=== PATIENT | male | born 1990 | race Caucasian/White ===

== ENCOUNTER 2023-11-20 17:02 | Emergency (ER) | payer MEDICAID, SELFPAY ==
[2023-11-20 17:19] VITALS: BP 145/71; PULSE 67; RESP 16; TEMP 36.6; O2SAT 98
--- NOTE | 2023-11-20 17:45 | ED.URI ---
HPI - URI/Sore Throat General Chief Complaint: Upper Respiratory Infection Stated Complaint: Abdominal Pain/Diarrhea Source: patient and RN notes reviewed Mode of arrival: ambulatory Limitations: no limitations History of Present Illness HPI Narrative: 33-year-old male presented for complaint of sinus pressure, nasal drainage, fever and cough. Onset yesterday. Endorses temperature in the night was 104.5, though he had multiple blankets on. Endorses sleeping most of yesterday. He has taken ibuprofen. Patient also reports intermittent episodes of diarrhea for about 3 weeks. This is associated with abdominal cramping. Denies hematochezia, melena, vomiting or lethargy. Taking Pepto-Bismol. MD elicited complaint: cough Related Data Allergies Allergy/AdvReac Type Severity Reaction Status Date / Time No Known Allergies Allergy Unverified 05/14/17 13:57 Review of Systems Review of Systems: CONSTITUTIONAL: Endorses malaise, chills, sweats, fever EYES: Denies visual changes, redness, or discharge ENT: Reports rhinorrhea, congestion, otalgia, denies sore throat CARDIOVASCULAR: Denies chest pain, palpitations, edema RESPIRATORY: Reports cough, post nasal drainage. Denies dyspnea GASTROINTESTINAL: Denies abdominal pain, nausea, vomiting, diarrhea SKIN: Denies rash or itching MUSCULOSKELETAL: Endorses myalgia Exam Narrative: GENERAL: well-appearing EYES: PERRLA, conjunctivae clear ENT: Mucous membranes moist. TMs pearly sierra with dull light reflex bilaterally; no tragal tenderness. Oropharynx mildly erythematous without lesions or exudate, no drooling, no hoarseness, no trismus, uvula midline. No tripod positioning, muffled voice, soft palate or pharyngeal wall bulging NECK: Supple. No lymphadenopathy CHEST: Clear to auscultation, breath sounds equal. No wheezing, rhonchi, rales, or stridor. No respiratory distress, speaks in full sentences. HEART: Regular rate and rhythm. No murmur heard. SKIN: Warm, dry, no rash. NEURO: Alert and oriented x3. PSYCH: Normal mood and affect Course Course Emergency Course: Patient is aware of diagnosis, understands and agrees to treatment plan. Anticipatory guidance given. Patient agrees to follow-up as directed and is aware of reasons to seek care at the emergency department. Portions of this record may have been created with voice recognition software Level of Care: Express Care Visit Vital Signs Vital signs: Vital Signs Temperature 97.8 F 11/20/23 17:19 Pulse Rate 67 11/20/23 17:19 Respiratory Rate 16 11/20/23 17:19 Blood Pressure 145/71 H 11/20/23 17:19 Pulse Oximetry 98 11/20/23 17:19 Oxygen Delivery Room Air 11/20/23 17:19 Temperature 97.8 F 11/20/23 17:19 Pulse Rate 67 11/20/23 17:19 Respiratory Rate 16 11/20/23 17:19 Blood Pressure 145/71 H 11/20/23 17:19 Pulse Oximetry 98 11/20/23 17:19 Oxygen Delivery Room Air 11/20/23 17:19 reviewed MDM - URI/Sore Throat MDM Narrative Medical decision making narrative: negative flu and COVID results reviewed with patient. Discussed physical exam findings. Advised supportive measures and signs/symptoms to go to the ER. Pt is appropriate for outpt treatment and f/u regarding intermittent GI complaints. Differential Diagnosis Differential diagnosis: Likely upper respiratory infection, sinusitis and viral infection Discharge Plan Discharge Clinical Impression: Viral infection Patient Disposition: Home, Self-Care Condition: Stable Instructions: Antibiotic Form, Upper Respiratory Infection (ED) Additional Instructions: Your rapid flu and covid test were negative today. It may be too early to detect the virus, therefore we recommend retesting at home in 1-2 days Continue to follow general precautions: frequent handwashing, wear a mask, isolate/social distance, and avoid crowds if you have a fever. You must be fever free for 24 hours without the use of fever reducing me
[2023-11-20 17:57] LABS: EDINFLUASCREEN Negative (Negative); EDINFLUBSCREEN Negative (Negative)
== END 2023-11-20 18:01 | disposition home or self-care (01) ==
PROVIDERS: Emergency Provider Nurse Practitioner Family; PCP Internal Medicine
DX: B34.9 Viral infection, unspecified (principal); Z20.822 Contact with and (suspected) exposure to COVID-19
CPT/HCPCS: 87635; 87804; 99203; G0463

== ENCOUNTER 2024-10-12 14:49 | Emergency (ER) | payer OTHER, SELFPAY ==
--- OUTSIDE RECORDS SUMMARY | 2024-10-12 14:53 | XMS_ITS | Patient Health Record ---
Author Organization [facility] Address [address] [place] [address] Care Team Providers Care Embedded Firmware Engineer Name Role Phone Migration, Provider Unavailable Unavailable Reason For Referral No Information Encounters Encounter Location Date Provider Diagnosis [facility] [address] [place], [place] [id number] 06/01/2024 Prov ider Migration [facility] [address] [place], [place] [id number] 06/02/2024 Prov ider Migration Plan Of Treatment No Information
--- OUTSIDE RECORDS SUMMARY | 2024-10-12 14:53 | XMS_ITS | Encounter Summary ---
Author Organization [facility] Address [address] [place] [address] Care Team Providers Care Scallop Shucker Name Role Phone Cindi Leggett MD Primary Care Provider [phone] Encounter Details Date Type Department Care Team (Late st Contact Info) Description 11/20/2023 [facility] [address] [address] [place], [place] [id number] Cindi Leggett MD [facility] [address] [id number] Work note Social History Tobacco Use Types Packs/Day Years Used Date Smoking Tobacco: Never Smokeless Tobacco: Never Comments:Counseled by Dr. Bernadine arriaza. PHQ-2 Answer Date Recorded Patient Health Questionnaire-2 Score 2 09/15/2023 Sex and Gender Information Value Date Recorded Sex Assigned at Male 06/19/2024 4:45 PM CDT Legal Sex Male 1:53 PM CDT Gender Identity Male 06/19/2024 4:45 PM CDT Sexual Orientation Straight 06/19/2024 4: 45 PM CDT documented as of this encounter Plan of Treatment Upcoming Encounters Date Type Department Care Team (Late st Contact Info) Description 10/22/2024 8:20 AM CDT [facility] - [address] [place], [place] [phone] Cindi Leggett MD [address] [phone] documented as of this encounter Visit Diagnoses Not on filedocumented in this encounter Additional Health Concerns Assessment Noted Time PHQ-9 Depression Total Score: 10 024 1:13 PM CDT documented as of this encounter Care Teams Scallop Shucker Relationship Specialty Start Date End Date Cindi Leggett MD [address] [address] PCP - General INTERNAL MEDICINE 11/28/22 documented as of this encounter
--- OUTSIDE RECORDS SUMMARY | 2024-10-12 14:53 | XMS_ITS | Encounter Summary ---
Author Organization [facility] Address [address] [place] [address] Care Team Providers Care Medical Front Desk Specialist Name Role Phone Cindi Leggett MD Primary Care Provider [phone] Reason for Visit * Reason Onset Date Comments Appointment Request 09/04/2023 Encounter Details Date Type Department Care Team (Latest Contact Info) Description 09/04/2023 Loudeye Message Enc [facility] - [address] [address] [address] [place] [address] Cindi Leggett MD [address] [place] [address] [address] [place] [address] Antidepressant and anti anxiety medicine Social History Tobacco Use Types Packs/Day Years Used Date Smoking Tobacco: Never Smokeless Tobacco: Never Comments:Counseled by Dr. Bernadine arriaza. PHQ-2 Answer Date Recorded Patient Health Questionnaire-2 Score 4 12/20/2022 Sex and Gender Information Value Date Recorded Sex Assigned at Male 06/19/2024 4:45 PM CDT Legal Sex Male 1:53 PM CDT Gender Identity Male 06/19/2024 4:45 PM CDT Sexual Orientation Straight 06/19/2024 4: 45 PM CDT documented as of this encounter Progress Notes * Evelyn Weiner MA - 09/05/2023 7:23 AM CDT Called pt again and left a message. Also sent a XIFIN message about the appts available today. * Evelyn Weiner MA - 09/04/2023 4:46 PM CDT LVM for pt to please call first thing in the morning. Will also call pt first tomorrow morning. * Evelyn Weiner MA - 09/04/2023 4:44 PM CDTCindi Leggett MD 09/04/2023 4:39 PM CDT Can you please call patient and find out if we can do tomorrow 09/05/2023 at 3:20 PM. Visit can be done virtually thanks. ----- Message ----- From: Alberto Costello Sent: 09/04/2023 12:43 PM CDT To: Cindi Leggett MD Subject: Antidepressant and anti anxiety medicine I tried to call the office today and couldn???t get through. Are there any openings today? Because of my job I don???t have regular scheduled days off and never know my availability until last minute documented in this encounter Plan of Treatment Upcoming Encounters Date Type Department Care Team (Late st Contact Info) Description 10/22/2024 8:20 AM CDT Office Visit [facility] - [place] [address] [address] [address] [place] [address] Cindi Leggett MD [address] [place] [address] documented as of this encounter Visit Diagnoses Not on filedocumented in this encounter Additional Health Concerns Assessment Noted Time PHQ-9 Depression Total Score: 15 023 11:39 AM CDT documented as of this encounter Care Teams Medical Front Desk Specialist Relationship Specialty Start Date End Date Cindi Leggett MD [address] [place] [address] PCP - General INTERNAL MEDICINE 11/28/22 documented as of this encounter
--- OUTSIDE RECORDS SUMMARY | 2024-10-12 14:53 | XMS_ITS | Clinical Summary ---
Author Organization [facility] Address [address] [facility] [place] [address] Care Team Providers Care Assistant Head Cashier Name Role Phone Unavailable Primary Care Provider Unavailabl e Source Comments [facility],non-owned Affiliates and Associated Physician Practices is amultiple site organization consisting of ambulatory clinics and hospital sitesin [place], [place], [place] and [place]. This disclosure is being madepursuant to the Care Everywhere program and may not contain all information available regarding this patient. Last updated 17.[facility] Allergies No known active allergies Medications * Be aware that medications may not be up to date on this document. Alwaysverify current medications with the patient. sildenafil (REVATIO) 20 MG tablet as needed 2 9 Active VENTOLIN HFA 108 (90 Base) MCG/ACT inhaler Inhale 2 puffs by mouth every 6 hours as needed for Shortness of Breath, Wheezing or Cough 1 Inhaler 9 Active predniSONE (DELTASONE) 20 MG tablet Take 2 tabs daily for 2 days and then 1 tab daily for 2 days. ( Take with food) 6 tablet 9 Active Additional Information Patient not taking.Reported on 05/17/2019 benzonatate (TESSALON) 200 MG capsule Take 1 capsule by mouth 3 times daily as needed for Cough 30 capsule 0 Active Active Problems No known active problems Family History Relation Name Status Comments Father Alive Mother Alive Social History Tobacco Use Types Packs/Day Years Used Date Smoking Tobacco: Never Smokeless Tobacco: Never Alcohol Use Standard Drinks/Week Comments Yes 8 (1 standard drink = 0.6 oz pur e alcohol) Sex and Gender Information Value Date Recorded Sex Assigned at Not on file Legal Sex Male 6:22 AM FORGING PRESS SETTER UP Gender Identity Not on file Sexual Orientation Not on file Last Filed Vital Signs Vital Sign Reading Time Taken Comments Blood Pressure 104/62 05/17/2019 12:36 PM CDT Pulse 71 05/17/2019 12:36 PM CDT Temperature 37.1 C (98.7 F) 05/17/2019 12:36 PM CDT Respiratory Rate 20 05/17/2019 12:36 PM CDT Oxygen Saturation 98% 11/12/2018 10:49 AM CDT Inhaled Oxygen Concentration - - Weight 117.9 kg (260 lb) 05/17/2019 12:36 PM CDT Height 185.4 cm (6' 1) 05/17/2019 12:36 PM CDT Body Mass Index 34.3 05/17/2019 12:36 PM CDT Plan of Treatment Health Maintenance Due Date Last Done Comments HIV SCREENING 01/27/2007 HEPATITIS C SCREENING 01/23/2010 DTAP/TDAP/TD VACCINES (1 - Tdap) 01/27/2011 HEPATITIS B VACCINE (1 of 3 - 19+ 3-dose series) 01/27/2011 HPV VACCINE (1 - 3-dose SCDM series) 01/27/2019 COVID-19 VACCINE (1 - 2023-2 5 season) 2023 DEPRESSION SCREENING 03/06/2024 INFLUENZA VACCINE (#1) 2024 ZOSTER VACCINE (1 of 2) 01/27/2042 HIB VACCINE Aged Out No longer eligi ble based on patient's age to complete this topic MENINGOCOCCAL (Group B) VACC INE SHARED DECISION-MAKING Aged Out No longer eligibl e based on patient's age to complete this topic MENINGOCOCCAL GROUPS A/C/Y/W VACCINE Aged Out No longer eligible b ased on patient's age to complete this topic PNEUMOCOCCAL VACCINE Aged Out No long er eligible based on patient's age to complete this topic Insurance ANTH
--- NOTE | 2024-10-12 14:54 | ED.EYEPROB ---
HPI - Eye Problem General Chief complaint: Eye Problems Stated complaint: right eye Time Seen by Provider: 10/12/24 14:54 Source: patient Mode of arrival: ambulatory Limitations: no limitations History of Present Illness HPI Narrative: Ravinder is a 34-year-old male patient presenting to the clinic today with complaints of possible stye in the right eye. He reports on he woke up with right eyelid pain and swelling. Has been applying warm compresses. Denies any visual changes or drainage coming from the eye. Denies any known foreign body or injury to the eye. No fever, chills, body aches. Related Data Home Medications ?Medication ?Instructions ?Recorded ?Confirmed ?Last Taken ?Type bupropion HCl 75 mg tablet mg PO 10/12/24 Unknown History Allergies Allergy/AdvReac Type Severity Reaction Status Date / Time No Known Allergies Allergy Unverified 05/14/17 13:57 Review of Systems Review of Systems: Pertinent positives per HPI. Patient denies any fever, chills, rash, headache, visual changes, dizziness, cough, runny nose, sore throat, shortness of breath, chest pain, palpitations, nausea, vomiting, diarrhea, constipation, abdominal pain, or any urinary issues. PMFSH Comments At the time of my signature, I reviewed and agree with the nursing past medical, surgical, social, and family history. There is no relevant family history pertinent to the patient complaint. Exam Narrative: General: Well-developed, well nourished, in no apparent distress Head: Normocephalic, atraumatic Eyes: Pupils equally round and reactive to light bilaterally, EOM intact, sclera and conjunctive clear, no discharge, redness and swelling noted to the right upper eyelid with a internal stye to the medial aspect of the right upper eyelid, tenderness to palpation over this area with localized swelling to the right upper eyelid. No periorbital edema Ears: TMs intact and clear, ear canals clear, no drainage, grossly hearing normal. Nose: Nares patent, no discharge, no inflammation, no sinus tenderness. Mouth: Oropharynx without lesions or masses, good dentition, MMM. Neck: Supple, trachea midline, no enlargement of anterior or posterior cervical nodes, no thyroid masses or goiter palpable. Cardio: Regular rate and rhythm, s1 and s2 normal, no murmur appreciated. Resp: Clear to auscultation bilaterally anteriorly and posteriorly, no rhonchi, rales, wheezing or rubs Course Course Emergency Course: Portions of this record may have been created with voice recognition software. Level of Care: Express Care Visit Vital Signs Vital signs: Vital Signs Temperature 37.1 C 10/12/24 15:03 Pulse Rate 101 H 10/12/24 15:03 Respiratory Rate 16 10/12/24 15:03 Blood Pressure 138/82 10/12/24 15:03 Pulse Oximetry 97 10/12/24 15:03 Oxygen Delivery Room Air 10/12/24 15:03 Temperature 37.1 C 10/12/24 15:03 Pulse Rate 101 H 10/12/24 15:03 Respiratory Rate 16 10/12/24 15:03 Blood Pressure 138/82 10/12/24 15:03 Pulse Oximetry 97 10/12/24 15:03 Oxygen Delivery Room Air 10/12/24 15:03 Vital signs reviewed MDM - Eye Problem MDM Narrative Medical decision making narrative: At the time of visit patient is resting comfortably on the exam table. Patient appears to be nontoxic. Complaints of possible stye in the right eye. He reports on he woke up with right eyelid pain and swelling. Has been applying warm compresses. Denies any visual changes or drainage coming from the eye. Denies any known foreign body or injury to the eye. Patient has pustular lesions to the right upper internal eyelid with localized swelling and pain to the right upper eyelid Plan: I suspect patient stye to the right upper eyelid. Prescription for polymyxin eyedrops was sent to the pharmacy Supportive measures were discussed with the patient and they voiced understanding discharge instructions and agrees to treatment plan. Return precautions reviewed Differential Diagnosis Differential diagnosis: Likely corneal abrasion, conjunctivitis, acute iritis, hyphema, periorbital cellulitis, subconjunctival hemorrhage, glaucoma, corneal ulcer, ruptured globe and other (Stye) Discharge Plan Discharge Clinical Impression: Hordeolum eyelid, internal Qualifiers: Laterality: right Eyelid: upper Qualified Code(s): H00.021 - Hordeolum internum right upper eyelid Patient Disposition: Home Condition: Stable Instructions: Antibiotic Form, Stye (ED) Additional Instructions: Practice good hand washing techniques Avoid touching eyes Instill eyedrops as prescribed-polymyxin May use warm moist washcloth to help remove eye discharge and apply warm compress to the eye at least 4 times daily If eyes are matted shut-do not pry eyes open-use a warm moist cloth to loosen matting and wipe matter away from eye May take Tylenol/Motrin as needed for pain or fever May take Benadryl as needed for itching Follow-up with your PCP in 3-5 days if symptoms persist or sooner if they worsen Go to the emergency room if you develop any fever that is not controlled by Tylenol or Motrin, loss of vision, eye pain, increase eye swelling,visual changes, headache, confusion, lethargy, weakness, chest pain, or shortness of breath. Patient Language: Montenegrin Prescriptions: New polymyxin B sulf-trimethoprim 10,000 unit- 1 mg/mL drops 1 drp RIGHT EYE Q3H 7 Days Qty: 10 0RF Rx Instructions: while awake; do not exceed 6 doses in 24 hours No Action bupropion HCl 75 mg tablet PO Follow-up/Referrals: Oleksandr,MD Cindi [Primary Care Provider] - Time of Disposition: 15:13 Quality NIHSS Nursing Documentation ED NIHSS nursing documentation: reviewed/agree
--- OUTSIDE RECORDS SUMMARY | 2024-10-12 14:54 | XMS_ITS | Encounter Summary ---
Author Organization [facility] Address [address] [place] [address] Care Team Providers Care Clutch Rebuilder Name Role Phone Cindi Leggett MD Primary Care Provider [phone] Reason for Visit * Reason Onset Date Comments Advice 10/12/2024 Encounter Details Date Type Department Care Team (Late st Contact Info) Description 10/12/2024 Telephone [facility] Multispecialty Care - [place] [address] [address] [address] [place] [address] Cindi Leggett MD [address] [place] [address] [address] [place], [place] [id number] Advice Social History Tobacco Use Types Packs/Day Years Used Date Smoking Tobacco: Never Smokeless Tobacco: Never Comments:Counseled by Dr. Bernadine arriaza. [id number] Health Literacy Answer Date Recor ded How often do you need to hav e someone help you when you read instructions, pamphlets, or other written material from your doctor or pharmacy? Never 08/06/2024 [facility] Utilities Answer Date Recorded In the past 12 months has e [employer], gas, oil, or water [employer] threatened to shut off services in your home? No 08/06/2024 Humiliation, Afraid, Rape, and Kick questionnair e Answer Date Recorded Within the last year, have y ou been afraid of your partner or ex-partner? No 08/06/2024 Within the last year, have y ou been humiliated or emotionally abused in other ways by your partner or ex-partner? No Within the last year, have y ou been kicked, hit, slapped, or otherwise physically hurt by your partner or ex-partner? No 08/06/2024 Within the last year, have y ou been raped or forced to have any kind of sexual activity by your partner or ex-partner? No 08/06/2024 Social Connection and Isolat ion Panel [NHANES] Answer Date Recorded In a typical week, how many times do you talk on the phone with family, friends, or neighbors? More than three times a week 08/06/2024 How often do you get togethe r with friends or relatives? More than three times a week 08/06/2024 How often do you attend chur ch or advent services? Patient unable to answer 08/06/2024 Active Member of Clubs or Organizations Not on f ile 08/06/2024 How often do you attend meet ings of the clubs or organizations you belong to? Patient unable to answer 08/06/2024 Are you , , di vorced, , never , or living with a partner? 08/06/2024 AUDIT-C Answer Date Recorded Q1: How often do you have a drink containing alc ohol? Monthly or less 08/06/2024 Q2: How many drinks containi ng alcohol do you have on a typical day when you are drinking? 1 or 2 08/06/2024 Q3: How often do you have si x or more drinks on one occasion? Never 08/06/2024 Overall Financial Resource Strain (CARDIA) Answe r Date Recorded How hard is it for you to pa y for the very basics like food, housing, medical care, and heating? Not very hard 08/06/2024 PHQ-2 Answer Date Recorded Patient Health Questionnaire-2 Score 3 09/24/2024 [facility] - Occupational Stress Questionnaire Answer Date Recorded Do you feel stress - tense, restless, nervous, or anxious, or unable to sleep at night because your mind is troubled all the time - these days? Only a little 08/06/2024 Exercise Vital Sign Answer Date Recorde d On average, how many days pe r week do you engage in moderate to strenuous exercise (like a brisk walk)? 0 days 08/06/2024 On average, how many minutes do you engage in exercise at this level? 0 min 08/06/2024 Hunger Vital Sign Answer Date Recorded Within the past 12 months, y ou worried that your food would run out before you got the money to buy more. Never true 08/07/19 25 Within the past 12 months, t he food you bought just didn't last and you didn't have money to get more. Never true 08/06/2024 PRAPARE - Transportation Answer Date Re corded In the past 12 months, has l ack of transportation kept you from medical appointments or from getting medications? No 05/2024 In the past 12 months, has l ack of transportation kept you from meetings, work, or from getting things needed for daily living? No 08/06/2024 Housing Stability Vital Sign Answer Antoine e Recorded In the last 12 months, was t here a time when you were not able to pay the mortgage or rent on time? No 08/06/2024 Number of Times Moved in the Last Year Not on fi le 08/06/2024 At any time in the past 12 m [facility], were you homeless or living in a long term (including now)? No 08/06/2024 Sex and Gender Information Value Date Recorded Sex Assigned at Male 06/19/2024 4:45 PM CDT Legal Sex Male 1:53 PM CDT Gender Identity Male 06/19/2024 4:45 PM CDT Sexual Orientation Straight 06/19/2024 4: 45 PM CDT documented as of this encounter Progress Notes * Coco Maldonado - 10/12/2024 12:55 PM CDT Nurse Triage - After Hours ([id number]) Comments Calling Due To Having Stye On Eye and It Is Getting Worse-Would Like Medical Advise Assessment Notes Returned call to patient. States that he has been suffering with a sty on his right upper lid sinceyesterday. States it is worsening. It is pencil eraser sized. States eye lid is moderately swollen and red mostly in the corner of the eye. Has slight blurriness. More discomfort and tenderness than pain. Denies fever. Advised to see PCP within 24 hours. Advised to call us back if worsens. CARE ADVICE given per Sty (Adult) guideline. EF RN documented in this encounter Plan of Treatment Upcoming Encounters Date Type Department Care Team (Late st Contact Info) Description 10/22/2024 8:20 AM CDT Office Visit [facility] Multispecialty Care - [address] [address] [address] [place] [address] Cindi Leggett MD [address] [place] [address] documented as of this encounter Visit Diagnoses Not on filedocumented in this encounter Additional Health Concerns Assessment Noted Time PHQ-9 Depression Total Score: 10 025 8:59 AM CDT documented as of this encounter Care Teams Clutch Rebuilder Relationship Specialty Start Date End Date Cindi Leggett MD [address] [place] [address] PCP - General INTERNAL MEDICINE 11/28/22 documented as of this encounter
--- OUTSIDE RECORDS SUMMARY | 2024-10-12 14:54 | XMS_ITS ---
Author Organization [facility] Address [address] [place] [address] Care Team Providers Care Laser Printing Operator Name Role Phone Migration, Provider Unavailable Unavailable REASON FOR VISIT EMR-Radames Encounters Encounter Location Date Provider Diagnosis [facility] [address] [place], [place] [id number] 06/02/2024 Prov ider Migration Plan Of Treatment No Information Progress Notes * CRISTINA AHNOB:1990 ( 34 yo Other)Acc No.[id number]:06/02/2024 Patient: Alva ALFREDOEMANUEL ANDRE :1990 A ge:34 Y S ex:Unknown Phone: Address:[address] [place] [address] [address], [address], [place], [address] Subjective: * Chief Complaints: * E MR-Radames * * Date:
--- OUTSIDE RECORDS SUMMARY | 2024-10-12 14:54 | XMS_ITS ---
Author Organization [facility] Address [address] [place] [address] Care Team Providers Care Coating Mixer Tender Name Role Phone Migration, Provider Unavailable Unavailable REASON FOR VISIT EMR-Radames Encounters Encounter Location Date Provider Diagnosis [facility] [address] [place], [place] [id number] 06/01/2024 Prov ider Migration Plan Of Treatment No Information Progress Notes * CRISTINA AHNOB:1990 ( 34 yo Other)Acc No.[id number]:06/01/2024 Patient: Alva ALFREDOEMANUEL ANDRE :1990 A ge:34 Y S ex:Unknown Phone: Address:[address] [place] [address] [address], [address], [place], [address] Subjective: * Chief Complaints: * E MR-Radames * * Date:
--- OUTSIDE RECORDS SUMMARY | 2024-10-12 14:54 | XMS_ITS | Clinical Summary ---
Author Organization [facility] Address [address] [place] [address] Care Team Providers Care Ups Driver Name Role Phone Jewel Abraham MD Primary Care Provider [phone] Duyen Nelson PT Unavailable Unavailable Allergies No known active allergies Medications escitalopram (LEXAPRO) 10 mg tabletIndication s:Anxiety with Depression Take 1 tablet (10 mg total) by mouth daily 30 tablet 2 03/03/2020 Active Active Problems Problem Noted Date Diagnosed Date Current moderate episode of major depressive disorder without prior episode 09/23/2019 Anxiety 09/23/2019 Immunizations Immunization Administration Dates Next Due Influenza, Unspecified 02/02/2020,2019(Deferred: Patient Refused),03/06/2019(Deferred: Patient Refused),03/06/2019(Deferred: Patient Refused),03/06/2018(Deferred: Patient Refused),03/07/2016(Deferred: Patient Refused) Tdap 02/02/2020 Family History Medical History Relation Name Comments Diabetes Father Relation Name Status Comments Father Alive Mother Alive Social History Tobacco Use Types Packs/Day Years Used Date Smoking Tobacco: Never Smokeless Tobacco: Never PHQ-2 Answer Date Recorded PHQ-2 Total Score (If total score is 3 or more points, staff should administer the PHQ-9) 5 03/03/2020 Personal Safety Answer Date Recorded Getting School Help Needed Not on file 05/19 Sex and Gender Information Value Date Recorded Sex Assigned at Not on file Legal Sex Male 2:29 AM TRANSFER CONTROLLER Gender Identity Not on file Sexual Orientation Not on file Obstetrics History Last Filed Vital Signs Vital Sign Reading Time Taken Comments Blood Pressure 130/80 03/03/2020 3:53 PM TRANSFER CONTROLLER Pulse 84 03/03/2020 3:53 PM TRANSFER CONTROLLER Temperature 36.4 C (97.5 F) 03/03/2020 3:53 PM TRANSFER CONTROLLER Respiratory Rate 16 05/25/2017 11:2 5 AM CDT Oxygen Saturation 97% 03/03/2020 3:53 PM TRANSFER CONTROLLER Inhaled Oxygen Concentration - - Weight 134.4 kg (296 lb 6.4 oz) 03/03/2020 3:53 PM TRANSFER CONTROLLER Height 188 cm (6' 2) 03/03/2020 3:53 PM TRANSFER CONTROLLER Body Mass Index 38.06 03/03/2020 3:53 PM TRANSFER CONTROLLER Plan of Treatment Not on file Insurance [employer] [place] [employer] HMO/PPO Address: [facility] [address] [place] [address] Care Teams Ups Driver Relationship Specialty Start Date End [place] [address] PCP - General Family Medicine 05/22/17 Duyen Nelson, PT Physical Therapist Physical Therapy 06/13/17
--- OUTSIDE RECORDS SUMMARY | 2024-10-12 14:54 | XMS_ITS | Clinical Summary ---
Author Organization [facility] Address [address] [place] [address] Care Team Providers Care Insulator Technician Name Role Phone Cindi Leggett MD Primary Care Provider [phone] Allergies Active Allergy Reactions Criticality Noted Date Comments Buspirone Dizziness 06/19/2024 Medications lamoTRIgine (LAMICTAL) 100 MG tabletIndicati ons:[place] (generalized anxiety disorder),Curr ent moderate episode of major depressive disorder without prior episode (CMS/FORMERLY [facility]) Take 0.5 tablets (50 mg total) by mouth nightly. 30 tablet 1 09/25/19 25 Active lamoTRIgine (LAMICTAL) 25 MG tabletIndicati ons:REGINA (generalized anxiety disorder) Take 1 tablet (25 mg total) by mouth daily. 30 tablet 1 08/07/19 25 025 Discontinued(Re order) lamoTRIgine (LAMICTAL) 25 MG tabletIndicati ons:REGINA (generalized anxiety disorder) Take 1 tablet (25 mg total) by mouth nightly. 30 tablet 1 09/25/19 25 025 Discontinued Active Problems Problem Noted Date Diagnosed Date Anxiety 09/23/2019 Current moderate episode of major depressive disorder without prior episode 09/23/2019 Encounters Date Type Department Care Team Description 10/12/2024 Telephone [facility] [address] [place] [address] Cindi Leggett MD Advice 09/25/2024 [facility]phone [facility] [place] [address] [facility] [address] [place], [place] [id number] Cindi Leggett MD Referral 09/24/2024 8:20 AM CDT [facility] [place] [address] [address] [facility] [address] [place] [address] Cindi Leggett MD Follow Up; Anxiety; Depression 09/24/2024 Travel 08/08/2024 Results [facility] [place] [address] [address] [facility] [address] [place] [address] Cindi Leggett MD TESTOSTERONE, TOTAL 08/07/2024 Orders Only [facility] [place] [address] [facility] [address] [place] [address] Radha Mireles MA 08/07/2024 [facility] [place] [address] [address] [facility] [address] [place] [address] Cindi Leggett MD Lab Order 08/06/2024 8:20 AM CDT [facility] [place] [address] [facility] [address] [place] [address] Cindi Leggett MD Physical 08/06/2024 - 08/06/2024 11:59 PM CDT Hospital Encounter [facility] [address] [place] [address] Discharge Disposition: Home or Self Care (Routine Discharge) 08/06/2024 Results [facility] [place] [address] [facility] [address] [place] [address] Cindi Leggett MD URINALYSIS AUTO DIP, HEMOGLOBIN, GLYCOSYLATED, TSH W/REFLEX, Additional followed-up results: 3 08/06/2024 Orders [facility] [place] [address] [address] [facility] [address] [place] [address] Cindi Leggett MD 08/06/2024 Travel from Last 3 Months Family History Medical History Relation Comments Diabetes Father Hypertension Father Cancer Maternal Grandfather Diabetes Maternal Grandfather Cancer Maternal Grandmother Diabetes Maternal Grandmother Diabetes Mother Cancer Paternal Grandfather Cancer Paternal Grandmother Relation Status Comments Father Maternal Grandfather Maternal Grandmother Mother Paternal Grandfather Paternal Grandmother Social History Tobacco Use Types Packs/Day Years Used Date Smoking Tobacco: Never Smokeless Tobacco: Never Tobacco Cessation:Counseling Given: Yes Comments:Counseled by Dr. Leggett. [id number] Health Literacy Answer Date Recor ded How often do you need to hav e someone help you when you read instructions, pamphlets, or other written material from your doctor or pharmacy? Never 08/06/2024 [facility] Utilities Answer Date Recorded In the past 12 months has e electric, gas, oil, or water [employer] threatened to shut off services in your [...] often do you attend chur ch or denominational services? Patient unable to answer 08/06/2024 Active [...] Recorded Patient Health Questionnaire-2 Score 3 09/24/2024 [facility] - Occupational Stress Questionnaire Answer Date Recorded [...] any time in the past 12 m [facility], were you homeless or living in a mcc (including now)? No 08/06/2024 Sex and Gender Information Value Date Recorded Sex Assigned at Male 06/19/2024 4:45 PM CDT Legal Sex Male 1:53 PM CDT Gender Identity Male 06/19/2024 4:45 PM CDT Sexual Orientation Straight 06/19/2024 4: 45 PM CDT Last Filed Vital Signs Vital Sign Reading Time Taken Comments Blood Pressure 130/80 09/24/2024 8:32 AM CDT Pulse 96 09/24/2024 8:32 AM CDT Temperature 37.1 C (98.7 F) 09/24/2024 8:32 AM CDT Respiratory Rate 16 09/24/2024 8:32 AM CDT Oxygen Saturation 98% 09/24/2024 8:32 AM CDT Inhaled Oxygen Concentration - - Weight 132.7 kg (292 lb 9.6 oz) 09/24/2024 8:32 AM CDT Height 185.4 cm (6' 1) 09/24/2024 8:32 AM CDT Body Mass Index 38.6 09/24/2024 8:32 AM CDT Plan of Treatment Upcoming Encounters Date Type Department Care Team (Late st Contact Info) Description 10/22/2024 8:20 AM CDT Office Visit [facility] [place] [address] [address] [place] [address] Cindi Leggett MD [address] [place] [address] Health Maintenance Due Date Last Done Comments HPV Vaccines (1 - 3-dose SCDM series) 01/27/2019 COVID-19 Vaccine (2023- season) 2023 Annual Physical 08/06/2025 08/06/2024, 12/20/2022 DTaP, Tdap and Td Vaccines (5 - Td or Tdap) 02/01/2030 02/02/2020, 10/16/1997, 10/14/1996, Additional history exists Hepatitis B Vaccines Completed 02/01/1993, 1992, 1992 Hepatitis C Completed 06/19/2023 PHQ-2 (Physician [place]) Completed 09/24/2024 Meningococcal B Vaccine Aged Out No l onger eligible based on patient's age to complete this topic Meningococcal Vaccine Aged Out No mally christiano eligible based on patient's age to complete this topic Pneumococcal Vaccine: Pediatrics (0 to 5 Years) and At-Risk Patients (6 to 49 Years) Aged Out No longer eligible based on patient's age to complete this topic RSV Immunizations Under 20 Months Aged Out No longer eligible based on patient's age to complete this topic Procedures Procedure Name Priority Date/Time Associated Diagnosis Comments TESTOSTERONE, TOTAL Routine 08/06/2024 1 0:32 AM CDT Drug therapy CBC W/DIFF AUTOMATED Routine 08/06/2024 10:32 AM CDT Annual physical exam General medical exam COMPREHENSIVE METABOLIC PANEL Routine 08/06/2024 10:32 AM CDT Annual physical exam General medical exam LIPID PANEL Routine 08/06/2024 10:32 AM CDT Annual physical exam General medical exam TSH W/REFLEX Routine 08/06/2024 10:32 AM CDT Annual physical exam General medical exam HEMOGLOBIN, GLYCOSYLATED Routine 08/06/2024 10:32 AM CDT Annual physical exam General medical exam URINALYSIS AUTO DIP Routine 08/06/2024 Annual physical exam Drug therapy HEPATITIS C ANTIBODY Routine 06/19/2023 1:18 PM CDT Annual physical exam from Last 3 Months or Most Recently Relevant to Health Maintenance Results * TSH W/REFLEX (08/06/2024 10:32 AM CDT) TSH 3.064 0.358 - 3.740 uIU/ML 08/06/2024 2:44 PM CDT -[facility] 08/06/2024 10:3 2 AM CDT us Cindi Leggett MD LABORATORY Final Result Performing Organization Address City/[facility]/ZIP Co de Phone Number [facility] [place] [address] [place] [address], [place] [phone] * (ABNORMAL) HEMOGLOBIN, GLYCOSYLATED (08/06/2024 10:32 AM CDT) HGB A1C 5.7 4.5 - 6.2 % 08/06/2024 3:16 PM CDT [facility] ESTIMATED AVG GLUCOSE 117(H) 74 - 106 MG/DL 08/06/2024 3:16 PM CDT [facility] 08/06/2024 10:3 2 AM CDT Cindi Leggett MD LABORATORY Final Result Performing Organization Address [facility] Co de Phone Number [facility] [place] [address] [place] [address], [place] [phone] * (ABNORMAL) COMPREHENSIVE METABOLIC PANEL (08/06/2024 10:32 AM CDT) SODIUM S/P/B 141 136 - 145 MMOL/L 08/06/2024 2:44 PM CDT [facility] POTASSIUM S/P/B 4.5 3.5 - 5.1 MMOL/L 08/06/2024 2:44 PM CDT [facility] CHLORIDE S/P/B 103 98 - 107 MMOL/L 08/06/2024 2:44 PM CDT [facility] CO2 27.5 21 - 32 MMOL/L 08/06/2024 2:44 PM CDT [facility] GLUCOSE 113(H) 70 - 99 MG/DL 08/06/2024 2:44 PM CDT [facility] BUN 14 7 - 18 MG/DL 08/06/2024 2:44 PM CDT [facility] CREATININE S/P/B 0.91 0.70 - 1.30 MG/DL 08/06/2024 2:44 PM T [facility] CALCIUM S/P/B 9.6 8.4 - 10.5 MG/DL 08/06/2024 2:44 PM T [facility] BILIRUBIN TOTAL S/P/B 0.2 0.2 - 1.0 MG/DL 08/06/2024 2:44 PM T [facility] ALKALINE PHOSPHATASE S/P/B 68 45 - 115 U/L 08/06/2024 2:44 PM T [facility] AST 26 15 - 37 U/L 08/06/2024 2:44 PM T [facility] ALT 56 16 - 63 U/L 08/06/2024 2:44 PM T [facility] TOTAL PROTEIN S/P/B 7.6 6.4 - 8.2 G/DL 08/06/2024 2:44 PM T [facility] ALBUMIN S/P/B 4.0 3.4 - 5.0 G/DL 08/06/2024 2:44 PM T [facility] ANION GAP 10.5 5 - 15 MMOL/L 08/06/2024 2:44 PM T [facility] Comment:REFERENCE RANGE NOT ESTABLISHED OSMOLALITY (CALC) 293 MOSM/KG 025 2:44 PM T [facility] Comment:REFERENCE RANGE NOT ESTABLISHED GFR ESTIMATE >90 >90 ML/MIN/1. 73 M2 08/06/2024 2:44 PM T [facility] GFR NOTES GFR REFERENCE S: 08/06/2024 2:44 PM T [facility] Comment: THE ESTIMATED GFR IS CALCULATED USING THE 2020 CKD-EPI EQUATION. THE FOLLOWING CATEGORIES FOR GRADING RENAL FUNCTION ARE RECOMMENDED BY THE INTERNATIONAL SOCIETY OF NEPHROLOGY (KDIGO 2012 CLINICAL PRACTICE GUIDELINE). G1,NORMAL OR HIGH: >89 ml/min/1.73 m2 G2,MILDLY DECREASED: 60-89 ml/min/1.73 m2 G3A,MILDLY TO MODERATELY DECREASED: 45-59 ml/min/1.73 m2 G3B,MODERATELY TO SEVERELY DECREASED: 30-44 ml/min/1.73 m2 G4,SEVERELY DECREASED: 15-29 ml/min/1.73 m2 G5,KIDNEY FAILURE: <15 ml/min/1.73 m2 08/06/2024 10:3 2 AM CDT Cindi Leggett MD LABORATORY Final Result [facility] [address] [place] [address], * (ABNORMAL) LIPID PANEL (08/06/2024 10:32 AM CDT) CHOLESTEROL 208(H) <200 MG/DL 08/06/2024 2:44 PM CDT [facility] TRIGLYCERIDES 89 <150 MG/DL 08/06/2024 2:44 PM CDT [facility] HDL 49 >40 MG/DL 08/06/2024 2:44 PM CDT [facility] LDL-C 141(H) <100 MG/DL 08/06/2024 2:44 PM CDT [facility] VLDL CALCULATION 18 5 - 28 MG/DL 08/06/2024 2:44 PM CDT [facility] CHOL/HDL RATIO 4.2(H) 0.0 - 4.0 08/06/2024 2:44 PM CDT [facility] LDL/HDL 2.9(H) 0.41 - 2.13 08/06/2024 2:44 PM CDT [facility] NON HDL CHOLESTEROL 159(H) <140 MG/DL 08/06/2024 2:44 PM CDT [facility] 08/06/2024 10:3 2 AM CDT Cindi Leggett MD LABORATORY Final Result -[facility] [place] [address] [facility] [place] [address], * (ABNORMAL) CBC W/DIFF AUTOMATED (08/06/2024 10:32 AM CDT) [facility] WBC 9.58 4.00 - 10.80 x10'3/uL 08/06/2024 2:35 PM CDT MG-[facility] RBC 5.13 4.50 - 6.10 x10'6/uL 08/06/2024 2:35 PM CDT [facility] HGB 15.1 13.0 - 18.0 G/DL 08/06/2024 2:35 PM CDT -[facility] HCT 45.9 37.0 - 52.0 % 08/06/2024 2:35 PM CDT -[facility] MCV 89.5 78.0 - 100.0 FL 08/06/2024 2:35 PM CDT [facility] MCH 29.4 27.0 - 31.0 PG 08/06/2024 2:35 PM CDT [facility] MCHC 32.9(L) 33.0 - 36.0 G/DL 08/06/2024 2:35 PM CDT [facility] RDW 12.8 11.5 - 14.5 % 08/06/2024 2:35 PM CDT [facility] PLT 315 150 - 350 x10'3/uL 08/06/2024 2:35 PM CDT [facility] MPV 11.4(H) 7.4 - 10.4 FL 08/06/2024 2:35 PM CDT [facility] DIFFERENTIAL TYPE AUTOMATED DIFFERENTIAL 08/06/2024 2:35 PM CDT [facility] NEUTROPHILS % 66.7 % 08/06/2024 2:35 PM CDT [facility] LYMPHOCYTES % 21.0 % 08/06/2024 2:35 PM CDT [facility] MONOCYTES % 6.6 % 08/06/2024 2:35 PM CDT [facility] EOSINOPHILS % 4.6 % 08/06/2024 2:35 PM CDT [facility] BASOPHILS % 0.8 % 08/06/2024 2:35 PM CDT [facility] IMMATURE GRANS % 0.3 % 08/06/2024 2:35 PM CDT [facility] ABS. NEUTROPHILS 6.39 1.60 - 8.30 x10'3/uL 08/06/2024 2:35 PM CDT [facility] ABS. LYMPHOCYTES 2.01 0.80 - 4.70 x10'3/uL 08/06/2024 2:35 PM CDT [facility] ABS. MONOCYTES 0.63 0.00 - 1.50 x10'3/uL 08/06/2024 2:35 PM CDT [facility] ABS. EOSINOPHILS 0.44(H) 0.00 - 0.40 x10'3/uL 08/06/2024 2:35 PM CDT [facility] ABS. BASOPHILS 0.08 0.00 - 0.20 x10'3/uL 08/06/2024 2:35 PM CDT [facility] ABS. IMMATURE GRANULOCYTES 0.03 0.00 - 0.03 x10'3/uL 08/06/2024 2:35 PM CDT [facility] 08/06/2024 10:3 2 AM CDT us Cindi Leggett MD LABORATORY Final Result -[facility] [address] [place] [address], [place] [phone] * TESTOSTERONE, TOTAL (08/06/2024 10:32 AM CDT) TESTOSTERONE 421.8 197.4 - 669.6 NG/DL 08/08/2024 10:51 AM CDT [facility] Comment: ASSAY PERFORMED BY CHEMILUMINESCENCE METHODOLOGY USING SIEMENS Custom C[employer] XPT REAGENT. PATIENT RESULTS DETERMINED BY ASSAYS USING DIFFERENT MANUFACTURERS FOR METHODS MAY NOT BE COMPARABLE. 08/06/2024 10:3 2 AM CDT us Cindi Leggett MD LABORATORY Final Result [facility] [address] [place] [address], [place] [phone] * (ABNORMAL) URINALYSIS AUTO DIP (08/06/2024) COLOR (U) YELLOW YELLOW [address] [place] TRANSPARENCY CLEAR(A) CLEAR MG[address] [place] GLUCOSE (U) NEGATIVE NEGATIVE MG/DL MG-[address] [place] BILIRUBIN (U) NEGATIVE NEGATIVE MG-[address], [place] KETONES MG/DL (U) NEGATIVE NEGATIVE MG/DL MG-[address], [place] SPECIFIC GRAVITY (U) 1.025 1.001 - 1.035 MG-[address], [place] BLOOD (U) NEGATIVE NEGATIVE MG-[address], [place] U PH 6.0 5.0 - 9.0 MG-[address], [place] PROTEIN (U) NEGATIVE NEGATIVE mg/dL MG-[address], [place] UROBILINOGEN 0.2 0.2 - 1.0 EU/dL = mg/dL MG-[address], [place] NITRITES NEGATIVE NEGATIVE MG/DL MG-[address], [place] LEUKOCYTES (U) NEGATIVE NEGATIVE MG-[address], [place] URINE SPECIMEN OBTAINED BY CLEAN CATCH PROCEDURE / Unknown 08/06/2024 Cindi Leggett MD URINE ORDERABLES Final Result Performing Organization Address City/[facility]/ZIP Co de Phone Number [phone] [place] [address] [facility] [address] [place] [address], [place] [phone] * HEPATITIS C ANTIBODY ([facility] ONLY) (06/19/2023 1:18 PM CDT) HEPATITIS C AB NON-REACTI VE NON-REACT CORBY 06/19/2023 9:54 PM CDT [facility] Comment: ANTIBODIES TO HCV NOT DETECTED. DOES NOT EXCLUDE THE POSSIBILITY OF EXPOSURE TO HCV. 06/19/2023 1:18 PM CDT Cindi Leggett MD LABORATORY Final Result Performing Organization Address City/[facility]/ZIP Co de Phone Number [facility] [address] [place] [address], [place] [phone] from Last 3 Months or Most Recently Relevant to Health Maintenance Insurance [address] [address] Care Teams Insulator Technician Relationship Specialty Start Date End Date Cindi Leggett MD [address] [facility] [address] [place] [address] PCP - General INTERNAL MEDICINE 11/28/22
[2024-10-12 15:03] VITALS: BP 138/82; PULSE 101; RESP 16; TEMP 37.1; O2SAT 97
== END 2024-10-12 15:19 | disposition home or self-care (01) ==
PROVIDERS: Emergency Provider Nurse Practitioner Family; PCP Internal Medicine
DX: H00.021 Hordeolum internum right upper eyelid (principal); F32.A Depression, unspecified
CPT/HCPCS: 99213; G0463